=== PATIENT | female | born 1960 | race Caucasian/White ===

== ENCOUNTER 2017-01-04 08:17 | Day surgery (SDC) | payer OTHER ==
[2014-07-31 20:31] VITALS: BMI 32.9
[2017-01-04] MEDS ORDERED: Propofol 10 mg/ml Inj (20 ML) ONE ×2 (10:09)
[2017-01-04 10:24] VITALS: O2SAT 100
[2017-01-04 10:58] VITALS: TEMP 97.8
[2017-01-04 11:33] VITALS: BP 133/85; PULSE 59; RESP 15
== END 2017-01-04 11:50 | disposition home or self-care (01) ==
LOC: C.ENDO 08:17
PROVIDERS: ATTEND Internal Medicine
DX: D12.4 Benign neoplasm of descending colon (principal); D12.2 Benign neoplasm of ascending colon; K64.8 Other hemorrhoids
CPT/HCPCS: 45388; 88305; J2704

== ENCOUNTER 2017-06-14 07:24 | Day surgery (SDC) | payer OTHER ==
[2017-03-21 14:09] VITALS: BMI 32.9
[2017-06-14] MEDS ORDERED: Propofol 10 mg/ml Inj (20 ML) ONE (09:32)
[2017-06-14 09:34] VITALS: O2SAT 100
[2017-06-14] MEDS ORDERED: Lidocaine Hydrochloride 5 ML INJ ONE (09:55)
[2017-06-14 10:00] VITALS: TEMP 97.3
[2017-06-14 10:42] VITALS: BP 132/85; PULSE 69; RESP 13
== END 2017-06-14 11:05 | disposition home or self-care (01) ==
LOC: C.ENDO 07:24
PROVIDERS: ATTEND Internal Medicine
DX: K22.10 Ulcer of esophagus without bleeding (principal); K21.9 Gastro-esophageal reflux disease without esophagitis; D13.0 Benign neoplasm of esophagus
CPT/HCPCS: 43239; 88305; 88312; 88313; 88342; J2704